=== PATIENT | male | born 1940 | race African-American/Black ===

== ENCOUNTER 2018-08-29 12:33 | Inpatient (IN) | payer MEDICARE, MEDICAID ==
[~2018-08-29] VITALS: Ht 177.8 cm; Wt 90.7 kg
[~2018-08-29 12:33] MED LIST: CLONIDINE; LISINOPRIL
[2018-08-29 14:36] LABS: BASOPHILS % 0.4 % (0.0-2.0); HEMOGLOBIN. 13.9 g/dL (14.0-18.0); LYMPHOCYTES % 15.7 % (20.0-50.0); MEAN CORPUSCULAR VOLUME 86.3 fL (80.0-94.0); MONOCYTES % 10.8 % (2.0-8.0); NEUTROPHILS % 70.1 % (40.0-76.0); RED BLOOD CELL COUNT 4.99 mill/uL (4.7-6.1); RED CELL DISTRIBUTION WIDTH 15.8 % (11.6-14.6)
[2018-08-29 14:43] LABS: CHLORIDE 103 mEq/L (98-107)
[2018-08-29 14:50] LABS: ETHANOL BLOOD < 10 mg/dL; MEAN PLATELET VOLUME 0.9 fl (7.4-10.4)
[2018-08-29 14:51] LABS: PLATELET 106 x1000/uL (130-400)
[2018-08-29] MEDS ORDERED: ACETAMINOPHEN 325MG TABLET PO PRN (18:45)
[2018-08-29] MEDS ORDERED: MAGNESIUM/ALUMINUM HYDROXIDE/SIMETHICONE 30ML UDC PO PRN (18:45)
[2018-08-29] MEDS ORDERED: ONDANSETRON HCL 4MG/2ML INJ IV PRN (18:45)
[2018-08-29] MEDS ORDERED: DOCUSATE SODIUM 100MG CAPSULE PO PRN (18:45)
[2018-08-29] MEDS ORDERED: CLONIDINE 0.1MG TABLET PO PRN (18:45)
[2018-08-29] MEDS ORDERED: IPRATROPIUM/ALBUTEROL 0.5-3(2.5)MG/3ML NEB INH PRN (18:45)
[2018-08-30] VITALS (7 sets, daily range): BP systolic 119–179; BP diastolic 50–79
[2018-08-30] MEDS ORDERED: MEMA10TA2 PO (03:01)
[2018-08-30] MEDS ORDERED: SERT50TA MT (03:01)
[2018-08-30] MEDS ORDERED: RISP1TAB26 MT (03:02)
[2018-08-30] MEDS ORDERED: DEPSPR PO (03:08)
[2018-08-30] MEDS: OMEPRAZOLE 20MG CAPSULE EXTENDED RELEASE PO SCH (05:44)
[2018-08-30 06:57] LABS: BASOPHILS % 0.8 % (0.0-2.0); EOSINOPHILS % 5.8 % (0.0-5.0); HEMATOCRIT. 38.4 % (42.0-52.0); HEMOGLOBIN. 12.5 g/dL (14.0-18.0); LYMPHOCYTES % 24.9 % (20.0-50.0); MEAN CORPUSCULAR HEMOGLOBIN 27.6 pg (28.0-32.0); MEAN CORPUSCULAR VOLUME 84.5 fL (80.0-94.0); MEAN PLATELET VOLUME 8.8 fl (7.4-10.4); MONOCYTES % 13.6 % (2.0-8.0); NEUTROPHILS % 54.9 % (40.0-76.0); PLATELET 124 x1000/uL (130-400); RED BLOOD CELL COUNT 4.54 mill/uL (4.7-6.1); RED CELL DISTRIBUTION WIDTH 15.1 % (11.6-14.6)
[2018-08-30 07:07] LABS: CHLORIDE 102 mEq/L (98-107)
[2018-08-30 07:21] LABS: PHOSPHORUS 3.4 mg/dL (2.5-4.9)
[2018-08-30] MEDS: LISINOPRIL 10MG TABLET PO SCH ×2 (09:00→22:07)
[2018-08-30] MEDS: SERTRALINE HCL 50MG TABLET PO SCH (11:00)
[2018-08-30] MEDS: ENOXAPARIN 30MG/0.3ML SYR SUBCUT SCH ×2 (14:45→22:07)
[2018-08-31] VITALS (7 sets, daily range): BP systolic 121–164; BP diastolic 46–77
[2018-08-31] MEDS: OMEPRAZOLE 20MG CAPSULE EXTENDED RELEASE PO SCH (06:21)
[2018-08-31 06:46] LABS: BASOPHILS % 0.9 % (0.0-2.0); EOSINOPHILS % 6.6 % (0.0-5.0); HEMATOCRIT. 37.9 % (42.0-52.0); HEMOGLOBIN. 12.3 g/dL (14.0-18.0); LYMPHOCYTES % 31.6 % (20.0-50.0); MEAN CORPUSCULAR HEMOGLOBIN 27.4 pg (28.0-32.0); MEAN CORPUSCULAR VOLUME 84.3 fL (80.0-94.0); MEAN PLATELET VOLUME 8.6 fl (7.4-10.4); MONOCYTES % 12.4 % (2.0-8.0); NEUTROPHILS % 48.5 % (40.0-76.0); PLATELET 120 x1000/uL (130-400); RED CELL DISTRIBUTION WIDTH 15.1 % (11.6-14.6)
[2018-08-31 06:52] LABS: CHLORIDE 103 mEq/L (98-107)
[2018-08-31] MEDS: SERTRALINE HCL 50MG TABLET PO SCH ×2 (08:47→09:00)
[2018-08-31] MEDS: LISINOPRIL 10MG TABLET PO SCH ×3 (08:48→20:59)
[2018-08-31] MEDS: ENOXAPARIN 30MG/0.3ML SYR SUBCUT SCH ×2 (08:48→09:00)
[2018-08-31] MEDS ORDERED: HYDRALAZINE 20MG/ML VIAL IV NR (17:00)
[2018-08-31] MEDS ORDERED: ENOXAPARIN 40MG/0.4ML SYR SUBCUT SCH (21:00)
[2018-09-01] VITALS: BP 147/56
[2018-09-01 04:00] VITALS: BP 146/64
[2018-09-01] MEDS: OMEPRAZOLE 20MG CAPSULE EXTENDED RELEASE PO SCH (06:29)
[2018-09-01 08:00] VITALS: BP 133/73
[2018-09-01] MEDS: SERTRALINE HCL 50MG TABLET PO SCH (08:43)
[2018-09-01] MEDS: LISINOPRIL 10MG TABLET PO SCH (08:43)
[2018-09-01 12:00] VITALS: BP 127/58
[2018-09-01 14:17] VITALS: BP 127/58
== END 2018-09-01 14:30 | DRG 74 ==
LOC: ER 12:33 → 5WST 15:40 → EDBEDREQ 15:44 → ENRESERV 20:51
PROVIDERS: ADMIT Family Medicine Adult Medicine; ATTEND Family Medicine Adult Medicine
PROC: 4A00X4Z Measurement of Central Nervous Electrical Activity, External Approach (ICD-10-PCS; principal; 2018-08-31)
DX: G90.8 Other disorders of autonomic nervous system (principal); I10 Essential (primary) hypertension; J44.9 Chronic obstructive pulmonary disease, unspecified; F03.90 Unspecified dementia, unspecified severity, without behavioral disturbance, psychotic disturbance, mood disturbance, and anxiety; I73.9 Peripheral vascular disease, unspecified; L89.520 Pressure ulcer of left ankle, unstageable; L89.510 Pressure ulcer of right ankle, unstageable; L89.610 Pressure ulcer of right heel, unstageable; L89.620 Pressure ulcer of left heel, unstageable; Z86.73 Personal history of transient ischemic attack (TIA), and cerebral infarction without residual deficits; Z87.891 Personal history of nicotine dependence; Z74.01 Bed confinement status; Z79.899 Other long term (current) drug therapy
CPT/HCPCS: 36415; 71045; 78582; 80048; 83735; 83880; 84100; 84443; 84484; 85379; 93005; 93970; 97166; 97535; 99285; A9558; G0482; J1650

== ENCOUNTER 2020-04-16 06:40 | Emergency (ER) | payer MEDICARE, MEDICAID ==
[~2020-04-16] VITALS: Ht 177.8 cm; Wt 91.0 kg
[~2020-04-16 06:40] MED LIST changes: +DEPSPR PO; +MEMA10TA2 PO; +RISP1TAB26 MT; +SERT50TA MT
[2020-04-16] MEDS ORDERED: SODIUM CHLORIDE 0.9% 1,000 ML IV ONE ×2 (07:16→11:00)
[2020-04-16] MEDS ORDERED: PIPERACILLIN/TAZ 3.375G PREMIX 50 ML IV ONE (07:30)
[2020-04-16 08:24] LABS: HEMATOCRIT. 57.3 % (42.0-52.0); HEMOGLOBIN. 16.5 g/dL (14.0-18.0); MEAN CORPUSCULAR HEMOGLOBIN 27.4 pg (28.0-32.0); MEAN CORPUSCULAR VOLUME 95.3 fL (80.0-94.0); MEAN PLATELET VOLUME 11.1 fl (7.4-10.4); PLATELET 188 x1000/uL (130-400); RED BLOOD CELL COUNT 6.02 mill/uL (4.7-6.1); RED CELL DISTRIBUTION WIDTH 18.3 % (11.6-14.6)
[2020-04-16 08:38] LABS: CLARITY URINE CLEAR (CLEAR); COLOR URINE YELLOW (YELLOW); KETONES URINE TRACE (NEGATIVE); LEUKOCYTE ESTERASE URINE NEGATIVE (NEGATIVE); NITRITE URINE NEGATIVE (NEGATIVE); OCCULT BLOOD URINE NEGATIVE (NEGATIVE); PROTEIN URINE NEGATIVE (NEGATIVE); SPECIFIC GRAVITY URINE 1.036 (1.005-1.030); UROBILINOGEN URINE 0.2 E.U./dL (0.2-1.0)
[2020-04-16 08:49] LABS: NUCLEATED RED BLOOD CELLS 1 /100 WBC; PLATELET ESTIMATE NORMAL
[2020-04-16 08:59] LABS: BG BASE EXCESS -16.6 mmol/L (-2.0-2.0); BG CARBOXYHEMOGLOBIN 1.1 % (0.5-1.5); BG DEOXYHEMOGLOBIN 5.6 % (0.0-5.0); BG FRACTION INSPIRED OXYGEN 21; BG HCO3 ACT 8.9 mmol/L (22.0-26.0); BG METHEMOGLOBIN 0.3 % (0.0-1.5); BG OXYGEN SATURATION 94.3 % (92.0-98.5); BG PCO2 22.3 mmHg (35.0-45.0); BG PO2 83.8 mmHg (75.0-100.0); BG SAMPLE SITE RIGHT RADIAL; BG TOTAL HEMOGLOBIN 15.7 g/dL (12.0-18.0); BG VENT MODE ROOM AIR
[2020-04-16] MEDS ORDERED: SODIUM CHLORIDE 0.9% 1000ML BAG (SEPSIS BOLUS) IV NR (09:00)
[2020-04-16 09:23] LABS: CHLORIDE 111 mEq/L (98-107)
[2020-04-16] MEDS ORDERED: SODIUM CHLORIDE 0.9% 1,000 ML IV STA (09:26)
[2020-04-16] MEDS ORDERED: INSULIN REGULAR (DRIP) 100 UNITS in SODIUM CHLORIDE 0.9% 99 ML IV ONE (09:26)
[2020-04-16 09:32] LABS: BETA HYDROXYBUTYRATE 4.2 mMol/L (0.0-0.3)
[2020-04-16 09:55] LABS: C REACTIVE PROTEIN QUANT > 9.5 mg/L (0.0-3.0)
[2020-04-16] MEDS ORDERED: SODIUM CHLORIDE 0.9% 1,000 ML IV SCH (11:01)
[2020-04-16] MEDS ORDERED: INSULIN REGULAR (DRIP) 100 UNITS in SODIUM CHLORIDE 0.9% 99 ML IV SCH (11:01)
[2020-04-16] MEDS ORDERED: ZOLPIDEM TARTRATE 5MG TABLET PO PRN (11:15)
[2020-04-16] MEDS ORDERED: DEXTROSE 50% WATER 50ML SYRINGE IV PRN ×2 (11:15)
[2020-04-16] MEDS ORDERED: GUAIFENESIN 200MG/10ML SUGAR FREE UDC PO PRN (11:15)
[2020-04-16] MEDS ORDERED: ACETAMINOPHEN 325MG TABLET PO PRN ×2 (11:15)
[2020-04-16] MEDS ORDERED: DOCUSATE SODIUM 100MG CAPSULE PO PRN (11:15)
[2020-04-16] MEDS ORDERED: NITROGLYCERIN 0.4MG TABLET SL SL PRN (11:15)
[2020-04-16] MEDS ORDERED: IPRATROPIUM/ALBUTEROL 0.5-3(2.5)MG/3ML NEB NEB PRN (11:15)
[2020-04-16] MEDS ORDERED: MAGNESIUM/ALUMINUM HYDROXIDE/SIMETHICONE 30ML UDC PO PRN (11:15)
[2020-04-16] MEDS ORDERED: CLONIDINE 0.1MG TABLET PO PRN (11:15)
[2020-04-16] MEDS ORDERED: ONDANSETRON HCL 4MG/2ML INJ IV PRN (11:15)
[2020-04-16] MEDS ORDERED: BLOOD SUGAR DIAGNOSTIC STRIP TEST SCH (12:00)
[2020-04-16] MEDS ORDERED: LEVOFLOXACIN 500MG PREMIX 100 ML IV SCH (13:00)
[2020-04-16] MEDS ORDERED: CEFTRIAXONE 1 G PREMIX 50 ML IV SCH (13:00)
[2020-04-16] MEDS ORDERED: ENOXAPARIN 100MG/ML SYR SUBCUT SCH (13:00)
[2020-04-16] MEDS ORDERED: ASPIRIN 300MG SUPP PR ONE (13:00)
[2020-04-16 14:00] VITALS: BP 151/68
[2020-04-16] MEDS ORDERED: FAMOTIDINE 20MG TABLET PO SCH (14:00)
[2020-04-16] MEDS ORDERED: LIDOCAINE HCL 1% 20ML VIAL (Pyxis) INJ ONE (14:11)
[2020-04-16 15:39] LABS: PHOSPHORUS 6.3 mg/dL (2.5-4.9)
[2020-04-16 15:42] LABS: T4 FREE 1.07 ng/dL (0.76-1.46)
[2020-04-16] MEDS ORDERED: INSULIN LISPRO 100 UNITS/ML SUBCUT ONE (15:56)
[2020-04-16 15:58] LABS: CREATINE KINASE MB FRACTION 6.6 ng/mL (0.5-3.6)
[2020-04-16 16:00] LABS: FOLIC ACID (FOLATE) SERUM 11.2 ng/mL (>5.38)
[2020-04-16] MEDS ORDERED: ASCORBIC ACID 500 MG TABLET PO SCH (21:00)
[2020-04-17] MEDS ORDERED: ASPIRIN 325MG EC TABLET PO SCH (09:00)
[2020-04-17] MEDS ORDERED: ZINC SULFATE 220 MG ( 50 ) CAPSULE PO SCH (09:00)
[2020-04-17 10:09] LABS: *AMPHETAMINES SCREEN URINE NEGATIVE (NEGATIVE); *BARBITURATES SCREEN URINE NEGATIVE (NEGATIVE); *BENZODIAZEPINES SCREEN URINE NEGATIVE (NEGATIVE); *COCAINE SCREEN URINE NEGATIVE (NEGATIVE)
[2020-04-17 10:10] LABS: CANNABINOID URINE SCREEN NEGATIVE (NEGATIVE); METHADONE URINE SCREEN NEGATIVE (NEGATIVE); OPIATES URINE SCREEN NEGATIVE (NEGATIVE); PHENCYCLIDINE URINE SCREEN NEGATIVE (NEGATIVE)
[2020-04-18] MEDS ORDERED: LEVOFLOXACIN 250MG PREMIX 50 ML IV SCH (13:00)
== END 2020-04-16 15:54 | disposition expired ==
LOC: ER 07:04 → EDBEDREQ 10:15 → SUPCPDRO 10:59 → ER 15:54 → CANBEDREQ 16:59
DX: I21.3 ST elevation (STEMI) myocardial infarction of unspecified site (principal); E11.10 Type 2 diabetes mellitus with ketoacidosis without coma; I10 Essential (primary) hypertension; J44.9 Chronic obstructive pulmonary disease, unspecified; Z20.828 Contact with and (suspected) exposure to other viral communicable diseases; Z79.899 Other long term (current) drug therapy
CPT/HCPCS: 31500; 36415; 36600; 70450; 71045; 76770; 76937; 80048; 80053; 80061; 80305; 81003; 82010; 82375; 82550; 82553; 82607; 82728; 82746; 82805; 82962; 83540; 83550; 83605; 83735; 83880; 84100; 84145; 84439; 84443; 84484; 85025; 85379; 85610; 86140; 87040; 87086; 87635; 93005; 93970; 99291; C1725; J0696; J1650; J1815; J1956; J2543; J3490; J7030; J7050